=== PATIENT | female | born 1975 | race Caucasian/White ===

== ENCOUNTER → 2025-05-13 | Outpatient (CLI) | payer MEDICARE, MEDICAID, SELFPAY ==
--- NOTE | 2025-05-13 13:41 | XR_ITS ---
Examination: Diagnostic digital mammography, bilateral Computer aided detection 3-D breast Tomosynthesis, bilateral Date and time of exam: May 13, 2025, 1345 hours INDICATIONS: Patient states palpable lump in the left breast note is beginning 4 days ago Technique: Nonmagnified MLO, CC views of the breasts to been obtained, reconstructed from 3-D Tomosynthesis images. R2 computer aided detection program utilized for evaluation of suspicious masses and/or abnormal calcifications. 3-D Tomosynthesis images obtained. Findings: The breasts are heterogeneously dense, which may obscure small masses Focal asymmetry is confirmed at the palpable marker site retroareolar region left breast Benign calcifications Impression: BI-RADS Category 0: Incomplete: Need additional imaging evaluation 14 mm focal asymmetry is confirmed retroareolar region left breast at the palpable , Recommend left breast sonography follow-up.
== END | disposition home or self-care (01) ==
LOC: CDIM 13:35
PROVIDERS: Referring Provider Nurse Practitioner Family; Visit Provider Nurse Practitioner Family
DX: R92.8 Other abnormal and inconclusive findings on diagnostic imaging of breast (principal); N64.89 Other specified disorders of breast
CPT/HCPCS: 77062; 77066; G0279

== ENCOUNTER → 2025-05-26 | Outpatient (CLI) | payer MEDICARE, MEDICAID, SELFPAY ==
--- NOTE | 2025-05-26 13:00 | XR_ITS ---
Examination: Breast ultrasound, unilateral, left Date and time of exam: May 26, 2025 1311 hours INDICATIONS: Mammogram May 13, 2025 14 mm focal asymmetry retroareolar region left breast, patient states retroareolar palpable lump and tenderness 6 months Technique: Real-time quintana scale ultrasonographic imaging performed left breast including all 4 quadrants as well as nipple retroareolar and axillary region. Findings: 6:00 cyst 3 x 4 mm Retroareolar cyst, 4 x 3 mm, 3 x 3 mm,. Retroareolar solid nodule 10 x 10 mm lobular margins IMPRESSION: BI-RADS Category 3: Probably benign findings Recommend 1 additional 6 month left breast sonogram follow-up to document stability of 10 mm retroareolar nodule described above
== END | disposition home or self-care (01) ==
LOC: CDIM 12:45
PROVIDERS: Referring Provider Nurse Practitioner Family; Visit Provider Nurse Practitioner Family
DX: N63.42 Unspecified lump in left breast, subareolar (principal)
CPT/HCPCS: 76641